=== PATIENT | female | born 1965 | race Caucasian/White ===

== ENCOUNTER 2016-08-16 00:52 | Emergency (ER) | payer MEDICAID, OTHER ==
--- NOTE | 2016-08-16 01:50 | ER Document Report ---
ED Cardiac - General Chief Complaint: Chest Pain Stated Complaint: CHEST PAINS Time seen by provider: 01:48 Mode of Arrival: Ambulatory Information source: Patient TRAVEL OUTSIDE OF THE [place] IN LAST 30 DAYS: No - HPI Patient complains to provider of: Chest pain Was the onset of pain: Sudden Is the pain a: New problem Quality of pain: Heaviness Severity now: Mild Severity at worst: Moderate Pain level currently: 1 Chest pain precipitating factors: At Rest Cardiac risk factors: Smoker Positive cardiac history: No Associated symptoms: Nausea/vomiting Exacerbated by: Coughing, Deep breaths, Torso movement Relieved by: Nothing Similar symptoms previously: No Recently seen / treated by doctor: No Notes: Patient is a 50-year-old female with no past medical history who is a smoker who presents to the emergency room complaining of chest pain that started around 9:30 PM while she was washing dishes, she reports that is occasionally sharp and stabbing nature but with generalized heaviness or pressure, she denies any diaphoresis, no shortness of breath, no history of similar symptoms previously, she denies any lightheadedness or dizziness, she does report some nausea, and a cough that is productive of a small amount of mucus, she reports her pain is worsened with certain movements, deep breaths or coughing - Related Data Allergies/Adverse Reactions: meperidine [From Demerol] Allergy (Verified 08/16/16 01:01) Past Medical History - General Information source: Patient - Social History Smoking Status: Current Every Day Smoker Family History: Reviewed & Not Pertinent Patient has suicidal ideation: No Patient has homicidal ideation: No Renal/ Medical History: Denies: Hx Peritoneal Dialysis Review of Systems - Review of Systems Constitutional: No symptoms reported EENT: No symptoms reported Cardiovascular: Chest pain Respiratory: No symptoms reported Gastrointestinal: Nausea Genitourinary: No symptoms reported Female Genitourinary: No symptoms reported Musculoskeletal: No symptoms reported Skin: No symptoms reported Hematologic/Lymphatic: No symptoms reported Neurological/Psychological: No symptoms reported -: Yes All other systems reviewed and negative Physical Exam - Vital signs Vitals: Temp Pulse Resp BP Pulse Ox 97.8 F 96 20 169/110 H 99 08/16/16 01:05 08/16/16 01:05 08/16/16 01:05 08/16/16 01:05 08/16/16 01:05 Interpretation: Normal - General General appearance: Appears well, Alert - HEENT Head: Normocephalic, Atraumatic Eyes: Normal Pupils: PERRL - Respiratory Respiratory status: No respiratory distress Chest status: Tender - Tenderness to palpate over midsternum Breath sounds: Normal Chest palpation: Normal - Cardiovascular Rhythm: Regular Heart sounds: Normal auscultation Murmur: No - Abdominal Inspection: Normal Distension: No distension Bowel sounds: Normal Tenderness: Nontender Organomegaly: No organomegaly - Back Back: Normal, Nontender - Extremities General upper extremity: Normal inspection, Nontender, Normal color, Normal ROM , Normal temperature General lower extremity: Normal inspection, Nontender, Normal color, Normal ROM , Normal temperature, Normal weight bearing. No: Humberto's sign - Neurological Neuro grossly intact: Yes Cognition: Normal Orientation: AAOx4 Roseann Coma Scale Eye Opening: Spontaneous [place] Coma Scale Verbal: Oriented Roseann Coma Scale Motor: Obeys Commands [place] Coma Scale Total: 15 Speech: Normal Motor strength normal: LUE, RUE, LLE, RLE Sensory: Normal - Psychological Associated symptoms: Normal affect, Normal mood - Skin Skin Temperature: Warm Skin Moisture: Dry Skin Color: Normal Course - Re-evaluation Re-evalutation: 08/16/16 02:54 Patient with mild leukocytosis, however remainder of labs and imaging findings unremarkable, pain is reproducible with palpation of the midsternum, likely musculoskeletal in nature, she was advised to take Motrin 600 mg 3 times a day, follow up with a primary care provider or return if symptoms worsen, mother acknowledges understanding and agreement with this plan - Vital Signs Vital signs: Temp Pulse Resp BP Pulse Ox 97.8 F 96 21 H 156/92 H 98 08/16/16 01:05 08/16/16 01:05 08/16/16 01:11 08/16/16 01:11 08/16/16 01:11 - Laboratory Result Diagrams: 08/16/16 01:18 08/16/16 01:18 Laboratory results interpreted by me: 08/16/16 08/16/16 01:18 01:18 WBC 13.8 H Absolute Neutrophils 9.9 H Sodium 145.5 H - Diagnostic Test Radiology reviewed: Image reviewed, Reports reviewed - EKG Interpretation by Me EKG shows normal: Sinus rhythm Rate: Normal Rhythm: NSR Voltage: Consistant with [facility]H Discharge - Discharge Clinical Impression: Chest wall pain Condition: Stable Disposition: HOME, SELF-CARE Instructions: Anti-Inflammatory Medication ([facility]), Chest Wall Pain ([facility]) Additional Instructions: Follow up with your primary care provider in one to 2 days. Return to the emergency room immediately if symptoms worsen or any additional concerns. Forms: Smoking Cessation Education
[2016-08-16 01:59] LABS: ABSOLUTE BASOPHILS # (AUTO) 0.1 10^3/uL (0.0-0.2); ABSOLUTE EOSINOPHILS # (AUTO) 0.2 10^3/uL (0.0-0.6); ABSOLUTE LYMPHOCYTES (AUTO) 2.6 10^3/uL (0.5-4.7); ABSOLUTE MONOCYTES (AUTO) 1.1 10^3/uL (0.1-1.4); ABSOLUTE NEUT (AUTO) 9.9 10^3/uL (1.7-8.2); BASOPHILS % (AUTO) 0.6 % (0-2); EOSINOPHILS % (AUTO) 1.3 % (0-6); HEMATOCRIT 44.2 % (36.0-47.0); HGB HCT DIFFERENCE 0.8; LYMPHOCYTES % (AUTO) 18.7 % (13-45); MEAN CORPUSCULAR HEMOGLOBIN 29.5 pg (27.0-33.4); MEAN CORPUSCULAR VOLUME 87 fl (80-97); MONOCYTES % (AUTO) 7.6 % (3-13); RED BLOOD COUNT 5.11 10^6/uL (3.72-5.28); RED CELL DISTRIBUTION WIDTH 13.1 % (11.5-14.0); SEGMENTED NEUTROPHILS % (AUTO) 71.8 % (42-78); WHITE BLOOD COUNT 13.8 10^3/uL (4.0-10.5)
[2016-08-16 02:04] LABS: ALANINE AMINOTRANSFERASE 21 U/L (9-52); ALBUMIN 3.9 g/dL (3.5-5.0); ALKALINE PHOSPHATASE 76 U/L (38-126); ANION GAP 13 (5-19); ASPARTATE AMINO TRANSFERASE 14 U/L (14-36); BILIRUBIN,TOTAL 0.6 mg/dL (0.2-1.3); BLOOD UREA NITROGEN 12 mg/dL (7-20); CALCIUM 9.9 mg/dL (8.4-10.2); CARBON DIOXIDE 28 mmol/L (22-30); CHLORIDE 105 mmol/L (98-107); CREATINE KINASE 56 U/L (30-135); CREATININE RESULT 0.77 mg/dL (0.52-1.25); GLUCOSE 100 mg/dL (75-110); POTASSIUM 3.8 mmol/L (3.6-5.0); SODIUM 145.5 mmol/L (137-145); TOTAL PROTEIN 7.4 g/dL (6.3-8.2)
[2016-08-16 02:18] LABS: TROPONIN I < 0.012 ng/mL
[2016-08-16 02:18] LABS: APPEARANCE,URINE CLEAR; BILIRUBIN,URINE NEGATIVE (NEGATIVE); GLUCOSE, URINE NEGATIVE (NEGATIVE); KETONES,URINE NEGATIVE (NEGATIVE); LEUKOCYTE ESTERASE,URINE NEGATIVE (NEGATIVE); NITRITE,URINE NEGATIVE (NEGATIVE); PROTEIN,URINE NEGATIVE (NEGATIVE); URINE SPECIFIC GRAVITY 1.009; UROBILINOGEN,URINE NEGATIVE mg/dL (<2.0)
[2016-08-16 03:45] VITALS: BP 142/97
--- NOTE | 2016-08-16 10:58 | EKG REPORT ---
SEVERITY:- ABNORMAL ECG - SINUS RHYTHM VENTRICULAR PREMATURE COMPLEX CONSIDER LEFT VENTRICULAR HYPERTROPHY BORDERLINE T ABNORMALITIES, INFERIOR LEADS : Confirmed by: Elliott Bales 16-Aug-2016 10:58:08
== END 2016-08-16 03:49 | disposition home or self-care (01) ==
LOC: ER 00:52
DX: R07.89 Other chest pain (principal); R11.2 Nausea with vomiting, unspecified; R05 Cough; D72.829 Elevated white blood cell count, unspecified; F17.200 Nicotine dependence, unspecified, uncomplicated
CPT/HCPCS: 36415; 71020; 80053; 81001; 82550; 82553; 83690; 84484; 85025; 93005; 93010; 99285